=== PATIENT | male | born 1985 | race Caucasian/White ===

== ENCOUNTER 2018-09-06 10:05 | Day surgery (SDC) | payer OTHER, SELFPAY ==
[2018-09-04 12:33] VITALS: BMI 30.4
[2018-09-06] VITALS (9 sets, daily range): BP systolic 115–131; BP diastolic 70–81; PULSE 57–80; RESP 11–19; TEMP 34.7–36.8; O2SAT 93–100; BMI 30.4
--- NOTE | 2018-09-06 | PATH_ITS ---
[facility] Accession Number: [id number] . 01 Material submitted: . PILONIDAL CYST . 02 Diagnosis: Excisional Specimen, Tissue Designated Pilonidal Cyst: Skin and subcutaneous tissue with deep cutaneous fissure without any significant inflammatory response. Negative for evidence of entrapment of hair shafts within the subcutaneous or dermal tissues. MRV/09/11/2018 . 02 Electronically signed: . Tk Fritz MD, Pathologist NPI- [id number] . 01 Gross description: . Received in formalin, labeled pilonidal cyst, is an unoriented ellipse of negrete smooth shiny skin with underlying tissue (7.8 x 2.5 x 1.5 cm) containing a perforation (1.0 x 0.2 cm) located 0.8 cm from the peripheral resection margin and 2.2 cm from the closest tip. The resection margin is inked black. [employer] serial sections submitted in cassettes A1-A3 with additional sectios to include the entire specimen A5-A15. . . . . ([id number]) /MRV . 02 Microscopic: . Sections are of tissue presumably from the sacral region. The tissue consists of skin with underlying subcutaneous tissue which is fat and fibrous tissue. The grossly described perforation is a deep cleft-like indentation of squamous epithelium filled in part with keratogenous material. No hair shafts are identified. There is no significant inflammatory reaction in association with this cleft. The changes do not appear to be those of a true pilonidal cyst with no evidence of subcutaneous or dermal entrapment of hair shafts. The entire specimen is embedded and there is no significant inflammatory reaction in any of the material. There is no evidence for neoplasm or any significant atypia. . 02 Pathologist provided ICD-10: M53.3 . 02 CPT . 571942 Performed at: 01 [facility] [address] [place] [address], [place], [place] [id number] MD Mariano Terry MD Phone: [phone] Performed at: 02 [facility] [address] [place], [place] [id number] MD Enedina Varela MD Phone: [phone]
[2018-09-06] MEDS: LACTATED RINGERS 1,000 ML 100 ML IV (11:10)
--- NOTE | 2018-09-06 11:24 | PM.PREOP ---
Pre-operative Note Interval Note History & Physical reviewed/Exam performed by Physician: Yes Changes to H&P: No H&P completed within 30 days and has changed as indicated here:: No change
[2018-09-06] MEDS: CEFAZOLIN 2 GM/100 ML FROZ.PIGGY IV (11:56)
[2018-09-06] MEDS: CLINDAMYCIN 900 MG/50 ML PIGGYBACK 50 MG IV (12:12)
--- NOTE | 2018-09-06 12:23 | SUR.OPER ---
Prone on padded OR bed, head in foam head support, gel chest rolls, gel pad under knees, pillow under lower legs, toes free of pressure, arms secured on padded arm boards at <90 degrees abduction. Safety belt at back, tape over blanket over lower legs
[2018-09-06] MEDS: BUPIVACAINE 0.5% W/ EPI (PF) VIAL 30 ML INJ (12:42)
--- NOTE | 2018-09-06 13:08 | PM.OP.1 ---
Operative Date/Time/Diagnoses Date of procedure: 09/06/18 Time of procedure: 13:09 Pre-op diagnosis: Pilonidal cyst Post-op diagnosis: same Procedure & Clinicians Procedure: Excision pilonidal cyst with transfer of tissue to allow closure off the midline Same procedure as scheduled: Yes Indications: Says pain over the coccyx with sinuses suggestive of pilonidal disease Surgeon: Thompson Simmons Click Yes if Unassisted: Yes Anesthesia Type: General Operative Notes Findings: No significant inflammation. Sinus extends down to coccyx. Closure Type: primary Specimen(s): other (Pilonidal) Applied: drain(s) (Nineteen Pete) Estimated Blood Loss (mL): 10 Blood products transfused: none Procedure in detail: The patient was placed back knife prone on the operating table after under going general endotracheal anesthesia. He was clipped and prepped and draped in the usual fashion. An elliptical incision was made at the edge of the pilonidal cysts and extended 2 cm off the midline to the left. The elliptical piece of tissue weeks excise down to including the sinus tracts P and the coccyx. There was no purulence. Hemostasis was achieved. Local anesthetic had been infiltrated prior to the incision and again at this point. The right side of tissue was incised about a cm below the skin level to release the right side to allow it to come across the midline. Tapes were released. A Pete drain was placed through a separate stab incision exiting above wound. It was late in the bottom of the dissection and 2 0 Vicryl was used to close the soft tissues over the Pete drain. The subcu was then closed with interrupted 3 0 Vicryl. The skin was closed with a running 2 0 Prolene suture. A small loop was left and the external portion of the closure and the suture was run down from above and then up from below. It was tied at the top and. Thus it was 1 long continuous loop of suture material. Any gapping in the skin was then closed with interrupted 3 0 nylon sutures. The skin and a dressing was applied and the drain had been secured with a 3 0 nylon. Was applied the patient was returned to his bed, extubated and taken recovery area in good condition. Complications: none Condition: stable Disposition: PACU Plan for aftercare: Follow-up next week for drain removal.
== END 2018-09-06 14:30 | disposition home or self-care (01) ==
PROVIDERS: PCP Family Medicine; Visit Provider Specialist
PROC: (CPT 11771; principal; 2018-09-06 12:45)
DX: M53.3 Sacrococcygeal disorders, not elsewhere classified (principal); K50.90 Crohn's disease, unspecified, without complications
CPT/HCPCS: 11771; 88304; J0330; J0690; J1100; J2250; J2405; J2704; J3010